=== PATIENT | male | born 1950 | race Caucasian/White ===

== ENCOUNTER 2024-01-25 18:13 | Emergency (ER) | payer OTHER, BC ==
[2024-01-25 18:22] VITALS: BP 144/86; PULSE 94; RESP 19; TEMP 98.4; BMI 25.8
[2024-01-25 19:41] LABS: EOS % 2.1 % (0-4.5); HEMATOCRIT 58.8 % (35.4-49); HEMOGLOBIN 19.5 GM/dL (11.7-16.9); LYMPH % 25.3 % (8-40); MCH 29.9 pg (25.7-33.7); MCHC 33.1 g/dl (32.0-35.9); MEAN CELL VOLUME 90.3 fl (80-96); MEAN PLT VOLUME 8.3 fl (7.5-11.1); MONO % 10.7 % (3.8-10.2); NEUT % 60.9 % (42.8-82.8); PLATELET COUNT 173 10^3/uL (134-434); RBC 6.51 M/mm3 (4.00-5.60); RDW 15.1 % (11.9-15.9); WHITE BLOOD COUNT 6.8 K/mm3 (4.0-10.0)
[2024-01-25 19:53] LABS: INR 0.98 (0.83-1.09); PROTHROMBIN TIME (PATIENT) 11.1 SEC (9.7-13.0)
[2024-01-25 19:56] LABS: ACTIVATED PTT 34.8 SECONDS (25.2-36.5)
[2024-01-25 20:01] LABS: CHLORIDE 108 mmol/L (98-107); POTASSIUM 4.6 mmol/L (3.5-5.1); SODIUM 140 mmol/L (136-145)
[2024-01-25 20:04] LABS: ALBUMIN 3.9 g/dl (3.4-5.0); ANION GAP 1 mmol/L (4-13); BLOOD UREA NITROGEN 18.5 mg/dL (7-18); CALCIUM 9.8 mg/dL (8.5-10.1); CO2 30 mmol/L (21-32); GLUCOSE,RANDOM 98 mg/dL (74-106)
[2024-01-25 20:08] LABS: CREATININE 1.2 mg/dL (0.55-1.3); SGOT/AST 18 U/L (15-37); SGPT/ALT 27 U/L (13-61)
[2024-01-25 20:09] LABS: BILIRUBIN,TOTAL 1.6 mg/dL (0.2-1); TOT PROT 6.9 g/dl (6.4-8.2)
[2024-01-25 20:10] LABS: ALK PHOS 83 U/L (45-117)
[2024-01-25 21:42] LABS: ERYTHROCYTE SEDIMENTATION RATE 1 mm/hr (0-20)
== END 2024-01-25 22:07 | disposition home or self-care (01) ==
LOC: JER 18:13
DX: H53.8 Other visual disturbances (principal)
CPT/HCPCS: 36415; 70544-TC; 70547-TC; 70551-TC; 80053; 83735; 85025; 85610; 85651; 85730; 86140; 93005; 93010; 99285-25